=== PATIENT | male | born 1955 | race Caucasian/White ===

== ENCOUNTER → 2018-10-11 | Day surgery (SDC) | payer BC | LOC: MSO 09:01 | DX: Z12.11 Encounter for screening for malignant neoplasm of colon (principal); K63.5 Polyp of colon; I10 Essential (primary) hypertension; Z79.899 Other long term (current) drug therapy; G47.33 Obstructive sleep apnea (adult) (pediatric); G62.9 Polyneuropathy, unspecified; F32.9 Major depressive disorder, single episode, unspecified | CPT/HCPCS: 00811; J2704; J7120 ==

== ENCOUNTER → 2020-06-05 | Outpatient (CLI) | payer BC | LOC: LAB 10:29 → EDSTATUS 13:13 | DX: E29.1 Testicular hypofunction (principal) ==

== ENCOUNTER → 2020-12-27 | Outpatient (CLI) | payer MEDICARE | LOC: LAB 11:37 | DX: N39.0 Urinary tract infection, site not specified (principal) ==

== ENCOUNTER → 2021-01-01 | Outpatient (CLI) | payer MEDICARE ==
[2021-01-01 20:47] LABS: URINE APPEARANCE CLEAR; URINE BILIRUBIN NEGATIVE (NEGATIVE); URINE COLOR YELLOW; URINE GLUCOSE NEGATIVE (NEGATIVE); URINE KETONE NEGATIVE (NEGATIVE); URINE NITRATE NEGATIVE (NEGATIVE); URINE PROTEIN(semi-quant) 1+ mg/dL (NEGATIVE); URINE UROBILINOGEN NORMAL (NORMAL)
[2021-01-01 20:48] LABS: URINE BLOOD TRACE (NEGATIVE); URINE LEUKOCYTE ESTERASE TRACE (NEGATIVE); URINE MUCUS PRESENT (NOT PRESENT)
== END ==
LOC: LAB 14:49
PROVIDERS: Urology
DX: N39.0 Urinary tract infection, site not specified (principal)

== ENCOUNTER → 2021-01-02 | Outpatient (CLI) | payer MEDICARE | LOC: LAB 12:55 | PROVIDERS: Urology | DX: N39.0 Urinary tract infection, site not specified (principal) ==

== ENCOUNTER → 2021-01-03 | Outpatient (CLI) | payer MEDICARE | LOC: RAD 07:56 | DX: N20.2 Calculus of kidney with calculus of ureter (principal); N39.0 Urinary tract infection, site not specified; K80.11 Calculus of gallbladder with chronic cholecystitis with obstruction; K57.30 Diverticulosis of large intestine without perforation or abscess without bleeding | CPT/HCPCS: Q9967 ==

== ENCOUNTER → 2021-04-02 | Outpatient (CLI) | payer MEDICARE, BC ==
[2021-04-02 10:17] LABS: POTASSIUM 3.7 mmol/L (3.5-5.1)
[2021-04-02 10:18] LABS: CALCIUM 8.6 mg/dL (8.3-10.5)
== END ==
LOC: LAB 09:49
PROVIDERS: Urology
DX: N20.0 Calculus of kidney (principal)

== ENCOUNTER → 2021-06-24 | Outpatient (CLI) | payer MEDICARE, BC ==
[2021-06-24 11:21] LABS: BASO # 0.03 (0.02-0.10); EOS # 0.29 (0.04-0.40); EOS % 3.8 % (0.0-4.0); HEMATOCRIT 47.1 % (42.0-52.0); HEMOGLOBIN 16.6 g/dL (13.5-18.0); LYMPH# 2.05 (1.50-4.00); MEAN CELL VOLUME 88 fl (78-100); MEAN CORPUSCULAR HEMOGLOBIN 31 pg (27-31); MEAN CORPUSCULAR HGB CONC 35 g/dL (33-37); MEAN PLATELET VOLUME 10.3 fl (7.4-10.4); MONO # 0.67 (0.20-0.80); NEU # 4.58 (1.40-6.50); PLATELET COUNT 206 K/mm3 (130-400); RED BLOOD COUNT 5.38 M/mm3 (4.20-5.60); RED CELL DISTRIBUTION WIDTH 13.5 % (11.5-14.5); WHITE BLOOD COUNT 7.7 K/mm3 (4.8-10.8)
[2021-06-24 11:30] LABS: POTASSIUM 4.1 mmol/L (3.5-5.1)
[2021-06-24 11:31] LABS: CALCIUM 9.1 mg/dL (8.3-10.5)
[2021-06-24 11:33] LABS: TOTAL PROTEIN 7.5 g/dL (6.2-8.1)
[2021-06-24 11:34] LABS: TOTAL BILIRUBIN 0.6 mg/dL (0.2-1.2)
== END ==
LOC: LAB 11:02
PROVIDERS: Family Medicine
DX: Z00.00 Encounter for general adult medical examination without abnormal findings (principal); E78.5 Hyperlipidemia, unspecified; R73.02 Impaired glucose tolerance (oral); E29.1 Testicular hypofunction

== ENCOUNTER → 2021-07-30 | Outpatient (CLI) | payer MEDICARE, BC | LOC: LAB 12:02 | DX: E29.1 Testicular hypofunction (principal) ==

== ENCOUNTER → 2024-10-20 | Outpatient (CLI) | payer MEDICARE, BC ==
[2024-10-20 11:01] LABS: BASO # 0.03 K/mm3 (0.02-0.10); EOS # 0.23 K/mm3 (0.04-0.40); HEMATOCRIT 43.6 % (42.0-52.0); HEMOGLOBIN 15.3 g/dL (13.5-18.0); LYMPH# 1.79 K/mm3 (1.50-4.00); MEAN CELL VOLUME 88 fl (78-100); MEAN CORPUSCULAR HEMOGLOBIN 31 pg (27-31); MEAN CORPUSCULAR HGB CONC 35 g/dL (33-37); MEAN PLATELET VOLUME 10.1 fl (7.4-10.4); MONO # 0.55 K/mm3 (0.20-0.80); NEU # 5.12 K/mm3 (1.40-6.50); PLATELET COUNT 207 K/mm3 (130-400); RED BLOOD COUNT 4.94 M/mm3 (4.20-5.60); RED CELL DISTRIBUTION WIDTH 13.3 % (11.5-14.5); WHITE BLOOD COUNT 7.8 K/mm3 (4.8-10.8)
[2024-10-20 11:10] LABS: CALCIUM 9.3 mg/dL (8.3-10.5)
[2024-10-20 11:13] LABS: TOTAL BILIRUBIN 0.6 mg/dL (0.2-1.2)
== END ==
LOC: LAB 10:36
PROVIDERS: Family Medicine
DX: Z12.5 Encounter for screening for malignant neoplasm of prostate (principal); R73.02 Impaired glucose tolerance (oral); I10 Essential (primary) hypertension; E78.5 Hyperlipidemia, unspecified